=== PATIENT | male | born 2000 | race Caucasian/White ===

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

== ENCOUNTER 2021-02-14 19:23 | Emergency (ER) | payer OTHER, SELFPAY ==
[2021-02-14] MEDS ORDERED: Ondansetron PF 4 MG/2 ML Vial ONE (19:55)
[2021-02-14 20:13] LABS: Hemoglobin 14.4 g/dL (14.0-18.0); Mean Corpuscular HGB CONC 35.3 g/dL (32.0-36.0); Mean Corpuscular Hemoglobin 29.3 pg (25.0-35.0); Mean Corpuscular Volume 82.9 fL (78.0-98.0); Platelet Count 160 thou/uL (130-400); RBC Distribution Width 10.8 % (11.5-14.5); Red Blood Cell (RBC) Count 4.94 mill/uL (4.00-5.20); White Blood Cell (WBC) Count 2.7 thou/uL (4.8-10.8)
[2021-02-14 20:27] LABS: ALT (SGPT) 15 U/L (8-55); AST (SGOT) 17 U/L (5-34); Albumin 4.6 g/dL (3.5-5.0); Alkaline Phosphatase 39 U/L (50-130); Anion Gap 15 mmol/L (10-20); BUN (Urea Nitrogen) 13 mg/dL (8.9-20.6); Bilirubin, Total 0.7 mg/dL (0.2-1.2); Calc. Creatinine Clearance 0 mL/min (70-130); Calcium 10.1 mg/dL (7.8-10.44); Carbon Dioxide 26 mmol/L (22-29); Chloride 100 mmol/L (98-107); Globulin 2.8 g/dL (2.4-3.5); Glucose 86 mg/dL (70-105); Potassium 4.1 mmol/L (3.5-5.1); Protein, Total 7.4 g/dL (6.0-8.3); Sodium 137 mmol/L (136-145)
[2021-02-14 20:32] LABS: Band 19 % (5-11); Lymphocytes 16 % (28-48); MDiff Complete? YES; Monocytes 14 % (0-4); Neutrophil 38 % (31-61); Reactive Lymphocytes 13 % (0-10)
[2021-02-15 14:41] LABS: SARS-CoV-2 PCR by NAA DETECTED (NotDetected)
== END 2021-02-14 21:40 | disposition home or self-care (01) ==
LOC: BURERS 19:23
DX: U07.1 COVID-19 (principal); K29.70 Gastritis, unspecified, without bleeding
CPT/HCPCS: 71045; 80053; 85025; 87804; 96374; J2405; U0003; U0005